=== PATIENT | female | born 1995 | race American Indian/Alaskan Native ===

== ENCOUNTER 2020-08-01 17:13 | Observation (INO) | payer OTHER ==
[2020-08-01] MEDS ORDERED: ACETAMINOPHEN 325 MG TAB ONE (17:20)
[2020-08-01] MEDS ORDERED: ACETAMINOPHEN 325 MG TAB PO ONE (17:25)
[2020-08-01] MEDS ORDERED: SODIUM CHLORIDE 0.9% 1000 ML IV SOLN IV ONE (17:26)
[2020-08-01] MEDS ORDERED: dexAMETHasone 4 MG/ML VIAL IV ONE (17:27)
[2020-08-01] MEDS ORDERED: AZITHROMYCIN 500 MG in SODIUM CHLORIDE 0.9% 250ML 250 ML IV ONE (17:27)
[2020-08-01] MEDS ORDERED: cefTRIAXone/NS 2 GM/100 ML 2 GM/100 ML BAG IV ONE (17:27)
--- NOTE | 2020-08-01 17:29 | Event Note ---
ED Screening Note ED Screening Note: Symptoms began on 07/21/2020 but have been worsening She has associated cough, shortness of breath, chest pain after frequent coughing, nausea No vomiting, no diarrhea, no abdominal pain She flew in from [place] No known sick contacts No past medical history No allergies to medications Last menstrual cycle 2 months ago, irregular cycles febrile, hypoxia, tachycardia This initial assessment/diagnostic orders/clinical plan/treatment(s) is/are subject to change based on patients health status, clinical progression and re- assessment by fellow clinical providers in the ED. Further treatment and workup at subsequent clinical providers discretion. Patient/guardian urged not to elope from the ED as their condition may be serious if not clinically assessed and managed. Initial orders include: sepsis/covid protocol pt placed on oxygen via nasal cannula charge nurse karlene made aware pt needs room CLARA
--- NOTE | 2020-08-01 18:11 | XRay Report ---
CHEST PA AND LATERAL VIEWS INDICATION: SOB, fever, hypoxia. COMPARISON: None FINDINGS: Support devices: None Heart: Normal Lungs/Pleura: No acute pulmonary or pleural findings. IMPRESSION: 1. No active disease. Signer Name: Wally Unger MD Signed: 08/01/2020 6:07 PM Workstation Name: [id number]
[2020-08-01 18:40] LABS: Basophils % (Auto) 0.2 % (0.0-1.8); Hematocrit 40.5 % (30.3-42.9); Hemoglobin 13.8 gm/dl (10.1-14.3); Lymphocytes % (Auto) 31.8 % (13.4-35.0); Mean Corpuscular HGB Conc 34 % (30-34); Mean Corpuscular Volume 86 fl (79-97); Monocytes # (Auto) 0.2 K/mm3 (0.0-0.8); Monocytes % (Auto) 6.3 % (0.0-7.3); Platelet Count 160 K/mm3 (140-440); Red Blood Count 4.72 M/mm3 (3.65-5.03); Red Cell Distribution Width 14.5 % (13.2-15.2)
[2020-08-01 18:52] LABS: Alanine Aminotransferase 41 units/L (7-56); Albumin 3.9 g/dL (3.9-5); Blood Urea Nitrogen 8 mg/dL (7-17); Calcium 8.8 mg/dL (8.4-10.2); Hemolysis Index 3
[2020-08-01 18:53] LABS: BUN/Creatinine Ratio 13
--- NOTE | 2020-08-01 22:45 | Emergency Department Report ---
ED Shortness of Breath HPI - General Chief Complaint: Dyspnea/Respdistress Stated Complaint: CHEST PAIN, SOB, HEADACHE Time Seen by Provider: 08/01/20 17:26 Source: patient Mode of arrival: Ambulatory Limitations: No Limitations - History of Present Illness Initial Comments: 24-year-old female, no past medical history, presents to ED with URI symptoms. Patient states for the last 10 days she has been having fever, cough, shortness of breath, body aches, loss of smell and taste, chest pain, headache. Patient states she has not been tested for COVID-19 because the test costs too much. Patient states she recently moved here from [place] earlier in the month. She does not have a PCP here in [place]. MD Complaint: shortness of breath -: days(s) (10) Severity: moderate Consistency: intermittent Improves With: rest Worsens With: exertion Associated Symptoms: chest pain, fever, cough Treatments Prior to Arrival: none - Related Data Home Oxygen Therapy: No Allergies Allergy/AdvReac Type Severity Reaction Status Date / Time No Known Allergies Allergy Unverified 08/01/20 17:16 ED Review of Systems ROS: Stated complaint: CHEST PAIN, SOB, HEADACHE Other details as noted in HPI Comment: All other systems reviewed and negative Constitutional: fever ENT: other (Reports loss of smell and taste) Respiratory: cough, SOB with exertion Cardiovascular: chest pain Gastrointestinal: denies: vomiting, diarrhea Musculoskeletal: myalgia Neurological: headache ED Past Medical Hx - Past Medical History Previous Medical History?: No - Surgical History Past Surgical History?: Yes Additional Surgical History: C SECTION X 3 - Social History Smoking Status: Never Smoker ED Physical Exam - General Limitations: No Limitations General appearance: alert, in no apparent distress, obese - Head Head exam: Present: atraumatic, normocephalic - Eye Eye exam: Present: normal appearance, EOMI - ENT ENT exam: Present: mucous membranes moist - Neck Neck exam: Present: normal inspection - Respiratory Respiratory exam: Present: normal lung sounds bilaterally. Absent: respiratory distress - Cardiovascular Cardiovascular Exam: Present: regular rate, normal rhythm - GI/Abdominal GI/Abdominal exam: Present: soft. Absent: distended, tenderness - Extremities Exam Extremities exam: Present: normal inspection - Neurological Exam Neurological exam: Present: alert, oriented X3 - Psychiatric Psychiatric exam: Present: normal affect, normal mood - Skin Skin exam: Present: warm, dry, intact, normal color ED Course Vital Signs 08/01/20 08/01/20 08/01/20 17:20 21:41 21:44 Temperature 102.9 F H Pulse Rate 112 H 86 Respiratory 20 18 26 H Rate Blood Pressure 145/87 O2 Sat by Pulse 93 96 Oximetry 08/01/20 08/01/20 08/01/20 21:45 22:00 22:15 Temperature Pulse Rate 85 86 83 Respiratory 26 H 17 20 Rate Blood Pressure 104/73 111/78 O2 Sat by Pulse 95 95 97 Oximetry 08/01/20 08/01/20 08/01/20 22:30 22:45 22:46 Temperature Pulse Rate Respiratory Rate Blood Pressure 114/70 114/70 110/63 O2 Sat by Pulse 94 97 Oximetry 08/01/20 08/01/20 08/01/20 23:15 23:31 23:45 Temperature Pulse Rate Respiratory Rate Blood Pressure 111/78 111/78 111/78 O2 Sat by Pulse 98 97 Oximetry 08/02/20 08/02/20 00:23 00:30 Temperature Pulse Rate Respiratory Rate Blood Pressure 112/68 129/79 O2 Sat by Pulse 98 95 Oximetry - Reevaluation(s) Reevaluation #1: 08/02/20 00:33 O2 sats dropped to 90% on room air with ambulation. ED Medical Decision Making - Lab Data Result diagrams: 08/01/20 17:56 08/01/20 17:56 - EKG Data -: EKG Interpreted by [facility] EKG shows normal: sinus rhythm, axis, intervals, QRS complexes, ST-T waves Rate: tachycardia (rate 106) - EKG Data Interpretation: no acute changes - Radiology Data Radiology results: report reviewed, image reviewed - Medical Decision Making 24-year-old female presents to ED with URI symptoms suspicious for COVID-19, including loss of smell or taste and difficulty breathing. O2 sats 90% on room air. CTA chest shows evidence of pneumonia. Blood cultures drawn, patient given Rocephin and azithromycin. Patient also given Decadron due to her hypoxia. Patient will be admitted to hospitalist, Dr Bowen, for further man agement. - Differential Diagnosis COVID-19, pneumonia, PE Critical Care Time: Yes Critical care time in (mins) excluding proc time.: 35 Critical care attestation.: If time is entered above; I have spent that time in minutes in the direct care of this critically ill patient, excluding procedure time. Critical Care Time: 35 min ED Disposition Clinical Impression: Pneumonia, Suspected 2019 novel coronavirus infection, Hypoxia Disposition: OP ADMIT IP TO THIS HOSP Is pt being admited?: Yes Condition: Stable Time of Disposition: 00:31
[2020-08-01 23:25] LABS: Bilirubin,Urine NEG (Negative); Blood,Urine NEG (Negative); Color,Urine Amber (Yellow); Mucus,Urine 3+ /HPF; RBC,Urine < 1.0 /HPF (0.0-6.0)
--- NOTE | 2020-08-02 00:29 | Cat Scan Report ---
CTA chest with contrast INDICATION : P.E. PROTOCOL!!! Pt complains of chest pain with S.O.B. and fever. TECHNIQUE: Axial imaging performed through the chest, with contrast bolus timing set to maximize opa cification of the pulmonary arteries. 3-plane MIP reformatted images were obtained. All CT scans at this location are performed using CT dose reduction for ALARA by means of automated exposure control. 100 mL of intravenous contrast administered. COMPARISON: None FINDINGS: Bolus: Contrast bolus timing is adequate. PTE: No filling defect is present to suggest PTE. Mediastinum: Heart and great vessels appear normal. No pathologic mediastinal adenopathy. Lungs: There are patchy multifocal groundglass opacities throughout the lungs with no dense consolid ation or effusion. Upper abdomen: Limited imaging of the upper abdomen shows nothing acute. Bones: Degenerative changes in the spine with nothing acute. IMPRESSION: 1. Negative for PTE. 2. Pulmonary findings as outlined above most likely reflect changes from an atypical infectious etiol ogy such as viral pneumonia. Recommend appropriate testing. Signer Name: Harry Burdick MD Signed: 08/02/2020 12:25 AM Workstation Name: [id number]
[2020-08-02] MEDS ORDERED: MAGNESIUM HYDROXIDE (MOM) ORAL LIQD UDC PO PRN (00:57)
[2020-08-02] MEDS ORDERED: ONDANSETRON 4 MG/2 ML INJ IV PRN (00:57)
[2020-08-02] MEDS ORDERED: MORPHINE 2 MG/1 ML INJ IV PRN (00:57)
--- NOTE | 2020-08-02 01:06 | History and Physical Report ---
History of Present Illness Date of examination: 08/02/20 Date of admission: 08/02/2020 Chief complaint: Shortness of breath Cough History of present illness: 24-year-old female with no significant past medical history presenting to the emergency room today complaining of cough and shortness of breath. She has had some mild chest discomfort related to a cough. She has also been having some generalized body aches and pain. 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 She denies any sick contacts and denies contact with anyone with COVID-19. Upon arrival in the emergency room today she was slightly tachycardic and hypoxic. She had a fever with a temperature 102.[address] angiogram today was compatible with viral pneumonia. Patient is being admitted for pneumonia with possible Covid. Past History Past Medical History: No medical history Past Surgical History: Social history: no significant social history Family history: no significant family history Medications and Allergies Allergies Allergy/AdvReac Type Severity Reaction Status Date / Time No Known Allergies Allergy Unverified 08/01/20 17:16 Home Medications Medication Instructions Recorded Confirmed Last Taken Type No Known Home Medications [No 08/02/20 08/02/20 Unknown History Reported Home Medications] Review of Systems Constitutional: fever, chills Ears, nose, mouth and throat: no nasal congestion, no sore throat Cardiovascular: no chest pain, no palpitations Respiratory: cough, shortness of breath, no wheezing Gastrointestinal: no abdominal pain, no nausea, no vomiting, no diarrhea, no heartburn Genitourinary Female: no flank pain, no dysuria, no hematuria Musculoskeletal: no neck pain, no low back pain Integumentary: no rash, no pruritis Neurological: no headaches, no confusion Psychiatric: no anxiety, no depression Exam - Constitutional Vitals: Temp Pulse Resp BP Pulse Ox 102.9 F H 83 20 129/79 95 08/01/20 17:20 08/01/20 22:15 08/01/20 22:15 08/02/20 00:30 08/02/20 00:30 General appearance: Present: no acute distress, well-nourished, obese - EENT Eyes: Present: PERRL, EOM intact. Absent: scleral icterus ENT: hearing intact, clear oral mucosa, dentition normal - Neck Neck: Present: supple, normal ROM - Respiratory Respiratory effort: normal Respiratory: bilateral: rales (Few rales in bases) - Cardiovascular Rhythm: regular Heart Sounds: Present: S1 & S2. Absent: gallop, systolic murmur, diastolic murmur, rub - Extremities Extremities: no ischemia, pulses intact, pulses symmetrical, No edema, normal temperature, normal color, Full ROM Peripheral Pulses: within normal limits - Abdominal General gastrointestinal: Present: soft, non-tender, non-distended, normal bowel sounds. Absent: mass - Integumentary Integumentary: Present: clear, warm, dry. Absent: rash - Musculoskeletal Musculoskeletal: strength equal bilaterally - Psychiatric Psychiatric: appropriate mood/affect, intact judgment & insight, memory intact, cooperative - Neurologic Neurologic: CNII-XII intact, no focal deficits, moves all extremities Results - Labs CBC & Chem 7: 08/01/20 17:56 08/01/20 17:56 Labs: Abnormal lab results 08/01/20 08/01/20 08/01/20 Range/Units 17:56 17:56 17:56 WBC 3.2 L (4.5-11.0) K/mm3 Lymph # (Auto) 1.0 L (1.2-5.4) K/mm3 D-Dimer 275.4 H (0-234) ng/mlDDU Sodium 135 L (137-145) mmol/L Glucose 121 H (65-100) mg/dL AST 41 H (5-40) units/L Lactate Dehydrogenase 292 H (91-180) units/L C-Reactive Protein 5.20 H (0.00-1.30) mg/dL Total Protein 8.4 H (6.3-8.2) g/dL Ur Specific [place] (1.003-1.030) 08/01/20 Range/Units 22:31 WBC (4.5-11.0) K/mm3 Lymph # (Auto) (1.2-5.4) K/mm3 D-Dimer (0-234) ng/mlDDU Sodium (137-145) mmol/L Glucose (65-100) mg/dL AST (5-40) units/L Lactate Dehydrogenase (91-180) units/L C-Reactive Protein (0.00-1.30) mg/dL Total Protein (6.3-8.2) g/dL Ur Specific [place] 1.031 H (1.003-1.030) Assessment and Plan - Patient Problems (1) Pneumonia Current Visit: Yes Status: Acute Plan to address problem: Patient placed on empiric IV antibiotics and steroids. We also placed on isolation precautions to rule out COVID-19. Consult placed to infectious disease for evaluation. Will await COVID-19 testing. (2) Hypoxia Current Visit: Yes Status: Acute Plan to address problem: Possibly secondary to the underlying pneumonia. We will place patient on oxygen and keep O2 saturation greater or equal to 94%. (3) Suspected 2019 novel coronavirus infection Current Visit: Yes Status: Acute Plan to address problem: We will await COVID-19 testing. Infectious disease has been consulted for evaluation. (4) DVT prophylaxis Current Visit: Yes Status: Acute Plan to address problem: Patient is placed on subcutaneous Lovenox. (5) Full code status Current Visit: Yes Status: Acute Plan to address problem: Patient is a full code.
[2020-08-02] MEDS: ACETAMINOPHEN 325 MG TAB PO PRN ×2 (03:56→22:02)
[2020-08-02] MEDS ORDERED: dexAMETHasone 4 MG/ML VIAL IV SCH (10:00)
[2020-08-02] MEDS ORDERED: AZITHROMYCIN 500 MG in SODIUM CHLORIDE 0.9% 250ML 250 ML IV SCH (10:00)
[2020-08-02] MEDS: cefTRIAXone/NS 2 GM/100 ML 2 GM/100 ML BAG IV SCH (10:21)
--- NOTE | 2020-08-02 13:33 | Consultation ---
History of Present Illness - Reason for Consult Consult date: 08/02/20 COVID PUI Requesting physician: LUC SCHWARTZ - History of Present Illness The patient is a 24-year-old female with no significant past medical history admitted to the hospital with cough, shortness of breath and fever. She has been symptomatic for 10 days prior to admission. CXR without pneumonia but CT angiogram showed viral pneumonia concerning for COVID-19. Initial evaluation re vealed oxygen saturations of 97% on room air. Review of Systems: reviewed in the chart, unable to obtain, minimize risk of transmission Past History Past Medical History: No medical history Past Surgical History: Social history: no significant social history Family history: no significant family history Medications and Allergies Allergies Allergy/AdvReac Type Severity Reaction Status Date / Time No Known Allergies Allergy Unverified 08/01/20 17:16 Home Medications Medication Instructions Recorded Confirmed Last Taken Type No Known Home Medications [No 08/02/20 08/02/20 Unknown History Reported Home Medications] Active Meds: Active Medications Acetaminophen (Acetaminophen 325 Mg Tab) 650 mg PO Q4H PRN PRN Reason: Pain MILD(1-3)/Fever >100.5/MAC Last Admin: 08/02/20 03:56 Dose: 650 mg Documented by: Azithromycin (Azithromycin 250 Mg Tab) 500 mg PO QDAY [facility] Stop: 08/05/20 10:01 Dexamethasone (Dexamethasone 4 Mg Tab) 6 mg PO DAILY [facility] Stop: 08/10/20 12:00 Ceftriaxone Sodium (Rocephin/Ns 2 Gm/100 Ml) 2 gm in 100 mls @ 200 mls/hr IV Q24HR ILIR; Protocol Last Admin: 08/02/20 10:21 Dose: 200 mls/hr Documented by: Magnesium Hydroxide (Magnesium Hydroxide (Mom) Oral Liqd Udc) 30 ml PO Q4H PRN PRN Reason: Constipation Morphine Sulfate (Morphine 2 Mg/1 Ml Inj) 2 mg IV Q4H PRN PRN Reason: Pain, Moderate (4-6) Ondansetron HCl (Ondansetron 4 Mg/2 Ml Inj) 4 mg IV Q8H PRN PRN Reason: Nausea And Vomiting Last Admin: 08/02/20 01:41 Dose: 4 mg Documented by: Sodium Chloride (Sodium Chloride 0.9% 10 Ml Flush Syringe) 10 ml IV BID ILIR Last Admin: 08/02/20 10:22 Dose: 10 ml Documented by: Sodium Chloride (Sodium Chloride 0.9% 10 Ml Flush Syringe) 10 ml IV PRN PRN PRN Reason: LINE FLUSH Physical Examination - Physical Exam Narrative exam: Physical Exam (reviewed in chart to minimize risk of transmission) Constitutional: deferred Head, Ears, Nose: deferred Eyes: deferred Neck: deferred Oral: deferred Cardiovascular: deferred Respiratory: deferred GI: deferred Musculoskeletal: deferred Skin: deferred Hem/Lymphatic: deferred Psych: deferred Neurological: deferred - Constitutional Vitals: Vital Signs Temp Pulse Resp BP Pulse Ox 97.9 F 70 18 88/50 95 08/02/20 06:04 08/02/20 06:04 08/02/20 06:04 08/02/20 06:04 08/02/20 09:25 Temperature -Last 24 Hours Temperature 97.9 F Temperature 99.1 F Temperature 102.9 F Results - Labs CBC & Chem 7: 08/01/20 17:56 08/01/20 17:56 Labs: Abnormal lab results 08/01/20 08/01/20 08/01/20 Range/Units 17:56 17:56 17:56 WBC 3.2 L (4.5-11.0) K/mm3 Lymph # (Auto) 1.0 L (1.2-5.4) K/mm3 D-Dimer 275.4 H (0-234) ng/mlDDU Sodium 135 L (137-145) mmol/L Glucose 121 H (65-100) mg/dL AST 41 H (5-40) units/L Lactate Dehydrogenase 292 H (91-180) units/L C-Reactive Protein 5.20 H (0.00-1.30) mg/dL Total Protein 8.4 H (6.3-8.2) g/dL Ur Specific [place] (1.003-1.030) 08/01/20 Range/Units 22:31 WBC (4.5-11.0) K/mm3 Lymph # (Auto) (1.2-5.4) K/mm3 D-Dimer (0-234) ng/mlDDU Sodium (137-145) mmol/L Glucose (65-100) mg/dL AST (5-40) units/L Lactate Dehydrogenase (91-180) units/L C-Reactive Protein (0.00-1.30) mg/dL Total Protein (6.3-8.2) g/dL Ur Specific [place] 1.031 H (1.003-1.030) - Imaging and Cardiology Chest x-ray: report reviewed, image reviewed Assessment and Plan Cultures: SARS CoV2 PCR: Pending Blood culture: In process A/P: 24-year-old female with no significant past medical history admitted to the hospital with cough, shortness of breath and fever. She has been symptomatic for 10 days prior to admission: #Bilateral pneumonia: Likely secondary to COVID-19, not seen on CXR, only seen on CT chest. Inflammatory markers not too impressive. #Leukopenia: Probably secondary to COVID-19 Recs: Minimal to no hypoxia, patient with low risk, hold off on remdesivir Okay to continue steroids f/u COVID-19 PCR results Procalcitonin is low, antibiotics discontinued Dominick Kohler MD, FACP [facility] O: [phone] F: [phone]
--- NOTE | 2020-08-02 14:45 | Event Note ---
Date: 08/02/20 Patient seen and evaluated Patient admitted for possible Covid pneumonia Covid work-up and observation for 1 day. Patient has temperature of 102 iron 2.9 ID consult appreciated
[2020-08-02] MEDS: guaiFENesin DM 200/20 MG ORAL LIQD 10 ML PO PRN ×2 (16:10→22:02)
[2020-08-03 05:11] LABS: Basophils % (Auto) 0.3 % (0.0-1.8); Hematocrit 40.4 % (30.3-42.9); Hemoglobin 13.9 gm/dl (10.1-14.3); Lymphocytes # (Auto) 0.6 K/mm3 (1.2-5.4); Lymphocytes % (Auto) 9.5 % (13.4-35.0); Mean Corpuscular HGB Conc 34 % (30-34); Mean Corpuscular Volume 86 fl (79-97); Monocytes # (Auto) 0.3 K/mm3 (0.0-0.8); Monocytes % (Auto) 5.2 % (0.0-7.3); Platelet Count 172 K/mm3 (140-440); Red Blood Count 4.73 M/mm3 (3.65-5.03); Red Cell Distribution Width 14.4 % (13.2-15.2)
[2020-08-03 05:19] LABS: BUN/Creatinine Ratio 20; Blood Urea Nitrogen 10 mg/dL (7-17); Calcium 8.8 mg/dL (8.4-10.2); Hemolysis Index 97
[2020-08-03 05:23] LABS: INR 1.02 (0.87-1.13)
[2020-08-03] MEDS: ACETAMINOPHEN 325 MG TAB PO PRN (06:21)
[2020-08-03] MEDS: guaiFENesin DM 200/20 MG ORAL LIQD 10 ML PO PRN ×2 (06:22→22:37)
[2020-08-03] MEDS: cefTRIAXone/NS 2 GM/100 ML 2 GM/100 ML BAG IV SCH (09:29)
[2020-08-03] MEDS: DEXAMETHASONE 4 MG TAB PO SCH (09:30)
[2020-08-03] MEDS ORDERED: AZITHROMYCIN 250 MG TAB PO SCH (10:00)
[2020-08-03] MEDS: oxyCODONE /ACETAMINOPHEN 5-325MG TAB PO PRN ×2 (13:40→22:36)
--- NOTE | 2020-08-03 16:10 | Progress Note ---
Assessment and Plan - Patient Problems (1) Pneumonia due to COVID-19 virus Current Visit: Yes Status: Acute Plan to address problem: 08/01 CXR shows no active disease 08/01 CTA chest is negative for PTE, patchy multifocal groundglass opacities throughout the lungs with no gas consolidation or effusion 08/02 COVID-19 PCR positive Infectious disease consulted, appreciate recommendations Supplemental oxygen as needed Anticoagulation per protocol Trend inflammatory markers from a stratification OOB 3 times daily Pulmonary hygiene SPO2 monitoring Decadron p.o. 6 mg for 10 days Prone to sleep as tolerated (2) Acute respiratory failure with hypoxia Current Visit: Yes Status: Acute Plan to address problem: Patient had hypoxia in the emergency department upon initial arrival Patient is on room air now SPO2 monitoring Supplemental oxygen as needed Pulmonary hygiene (3) DVT prophylaxis Current Visit: Yes Status: Acute Plan to address problem: Lovenox subcu SCDs to bilateral lower extremities while in bed History Interval history: This is a 24-year-old female with no significant medical presented to the emergency department on 08/01 complaining of cough, shortness of breath, mild chest discomfort, generalized weakness, generalized body aches and pain with a loss of sense of taste or smell. Upon arrival to the emergency department patient was tachycardic and hypoxic and febrile and her CT angiogram was compatible with viral pneumonia. Infectious disease was consulted and a COVID- 19 PCR was positive. On examination patient complains of severe headache which she states that she has been having since the beginning of the symptoms and described as a pressure top of her head. Patient remains on room air. RN instructed to provide her with an incentive spirometer. 08/02: Infectious disease evaluation completed and antibiotics discontinued given normal CRP, COVID-19 PCR positive Hospitalist Physical - Constitutional Vitals: Temp Pulse Resp BP Pulse Ox 98.1 F 68 18 92/51 92 08/03/20 11:29 08/03/20 11:29 08/03/20 11:29 08/03/20 11:29 08/03/20 11:29 General appearance: Present: no acute distress, well-nourished, obese - EENT Eyes: Present: EOM intact ENT: hearing intact, clear oral mucosa - Neck Neck: Present: supple, normal ROM - Respiratory Respiratory effort: normal Respiratory: bilateral: diminished - Cardiovascular Rhythm: regular Heart Sounds: Present: S1 & S2. Absent: systolic murmur, diastolic murmur - Extremities Extremities: no ischemia, pulses intact, pulses symmetrical, No edema, normal temperature, normal color, Full ROM Peripheral Pulses: within normal limits - Abdominal General gastrointestinal: soft, non-tender, normal bowel sounds - Integumentary Integumentary: Present: warm, dry - Psychiatric Psychiatric: appropriate mood/affect, cooperative - Neurologic Neurologic: CNII-XII intact, no focal deficits, moves all extremities - Allied Health Allied health notes reviewed: nursing Results - Labs CBC & Chem 7: 08/03/20 03:45 08/03/20 03:45 Labs: Laboratory Last Values WBC 6.7 K/mm3 (4.5-11.0) 08/03/20 03:45 RBC 4.73 M/mm3 (3.65-5.03) 08/03/20 03:45 Hgb 13.9 gm/dl (10.1-14.3) 08/03/20 03:45 Hct 40.4 % (30.3-42.9) 08/03/20 03:45 MCV 86 fl (79-97) 08/03/20 03:45 MCH 29 pg (28-32) 08/03/20 03:45 MCHC 34 % (30-34) 08/03/20 03:45 RDW 14.4 % (13.2-15.2) 08/03/20 03:45 Plt Count 172 K/mm3 (140-440) 08/03/20 03:45 Lymph % (Auto) 9.5 % (13.4-35.0) L 08/03/20 03:45 Nobles % (Auto) 5.2 % (0.0-7.3) 08/03/20 03:45 Eos % (Auto) 0.0 % (0.0-4.3) 08/03/20 03:45 Baso % (Auto) 0.3 % (0.0-1.8) 08/03/20 03:45 Lymph # (Auto) 0.6 K/mm3 (1.2-5.4) L 08/03/20 03:45 Nobles # (Auto) 0.3 K/mm3 (0.0-0.8) 08/03/20 03:45 Eos # (Auto) 0.0 K/mm3 (0.0-0.4) 08/03/20 03:45 Baso # (Auto) 0.0 K/mm3 (0.0-0.1) 08/03/20 03:45 Seg Neutrophils % 85.0 % (40.0-70.0) H 08/03/20 03:45 Seg Neutrophils # 5.7 K/mm3 (1.8-7.7) 08/03/20 03:45 PT 13.3 Sec. (12.2-14.9) 08/03/20 03:45 INR 1.02 (0.87-1.13) 08/03/20 03:45 D-Dimer 275.4 ng/mlDDU (0-234) H 08/01/20 17:56 Sodium 138 mmol/L (137-145) 08/03/20 03:45 Potassium 4.6 mmol/L (3.6-5.0) 08/03/20 03:45 Chloride 103.8 mmol/L (98-107) 08/03/20 03:45 Carbon Dioxide 21 mmol/L (22-30) L 08/03/20 03:45 Anion Gap 18 mmol/L 08/03/20 03:45 BUN 10 mg/dL (7-17) 08/03/20 03:45 Creatinine 0.5 mg/dL (0.6-1.2) L 08/03/20 03:45 Estimated GFR > 60 ml/min 08/03/20 03:45 BUN/Creatinine Ratio 20 % 08/03/20 03:45 Glucose 278 mg/dL (65-100) H 08/03/20 03:45 Lactic Acid 1.00 mmol/L (0.7-2.0) 08/02/20 05:48 Calcium 8.8 mg/dL (8.4-10.2) 08/03/20 03:45 Ferritin 189.3 ng/mL (10.0-200.0) 08/01/20 17:56 Total Bilirubin 0.40 mg/dL (0.1-1.2) 08/01/20 17:56 AST 41 units/L (5-40) H 08/01/20 17:56 ALT 41 units/L (7-56) 08/01/20 17:56 Alkaline Phosphatase 76 units/L (35-129) 08/01/20 17:56 Lactate Dehydrogenase 292 units/L (91-180) H 08/01/20 17:56 C-Reactive Protein 5.20 mg/dL (0.00-1.30) H 08/01/20 17:56 Total Protein 8.4 g/dL (6.3-8.2) H 08/01/20 17:56 Albumin 3.9 g/dL (3.9-5) 08/01/20 17:56 Albumin/Globulin Ratio 0.9 % 08/01/20 17:56 Procalcitonin < 0.05 ng/mL (<0.15) 08/01/20 17:56 HCG, Qual Negative (Negative) 08/01/20 18:24 Urine Color Nicole (Yellow) 08/01/20 22:31 Urine Turbidity Clear (Clear) 08/01/20 22:31 Urine pH 6.0 (5.0-7.0) 08/01/20 22:31 Ur Specific [place] 1.031 (1.003-1.030) H 08/01/20 22:31 Urine Protein 30 mg/dl mg/dL (Negative) 08/01/20 22:31 Urine Glucose (UA) Neg mg/dL (Negative) 08/01/20 22:31 Urine Ketones Neg mg/dL (Negative) 08/01/20 22:31 Urine Blood Neg (Negative) 08/01/20 22:31 Urine Nitrite Neg (Negative) 08/01/20 22:31 Urine Bilirubin Neg (Negative) 08/01/20 22:31 Urine Urobilinogen 2.0 mg/dL (<2.0) 08/01/20 22:31 Ur Leukocyte Esterase Neg (Negative) 08/01/20 22:31 Urine WBC (Auto) 3.0 /HPF (0.0-6.0) 08/01/20 22:31 Urine RBC (Auto) < 1.0 /HPF (0.0-6.0) 08/01/20 22:31 U Epithel Cells (Auto) 4.0 /HPF (0-13.0) 08/01/20 22:31 Urine Mucus 3+ /HPF 08/01/20 22:31 Coronavirus (PCR) Positive (Negative) A 08/02/20 10:00 Microbiology: Microbiology 08/01/20 17:56 Peripheral/Venous Blood Culture - Preliminary NO GROWTH AFTER 24 HOURS 08/01/20 17:56 Peripheral/Venous Blood Culture - Preliminary NO GROWTH AFTER 24 HOURS Prieto/IV: Voiding Method Toilet IV Catheter Type [Left Forearm INT / Saline Lock ] IV Catheter Type [Right Peripheral IV Forearm] IV Catheter Type [Right INT / Saline Lock Antecubital] Active Medications - Current Medications Current Medications: Generic Name Dose Route Start Last Admin Trade Name Freq PRN Reason Stop Dose Admin Acetaminophen 650 mg 08/02/20 00:57 08/03/20 06:21 Acetaminophen 325 Mg Tab PO 650 mg Q4H PRN Administration Pain MILD(1-3)/Fever >100.5/MAC Dexamethasone 6 mg 08/03/20 10:00 08/03/20 09:30 Dexamethasone 4 Mg Tab PO 08/10/20 12:00 6 mg DAILY ILIR Administration Guaifenesin 10 ml 08/02/20 15:51 08/03/20 06:22 Guaifenesin Dm 200/20 Mg Oral Liqd 10 Ml PO 10 ml Q4H PRN Administration Cough Magnesium Hydroxide 30 ml 08/02/20 00:57 Magnesium Hydroxide (Mom) Oral Liqd Udc PO Q4H PRN Constipation Morphine Sulfate 2 mg 08/02/20 00:57 Morphine 2 Mg/1 Ml Inj IV Q4H PRN Pain, Moderate (4-6) Ondansetron HCl 4 mg 08/02/20 00:57 08/02/20 01:41 Ondansetron 4 Mg/2 Ml Inj IV 4 mg Q8H PRN Administration Nausea And Vomiting Oxycodone/Acetaminophen 1 tab 08/03/20 13:21 08/03/20 13:40 Oxycodone /Acetaminophen 5-325mg Tab PO 1 tab Q6H PRN Administration Pain, Moderate (4-6) Sodium Chloride 10 ml 08/02/20 10:00 08/03/20 09:31 Sodium Chloride 0.9% 10 Ml Flush Syringe IV 10 ml BID ILIR Administration Sodium Chloride 10 ml 08/02/20 00:57 Sodium Chloride 0.9% 10 Ml Flush Syringe IV PRN PRN LINE FLUSH
--- NOTE | 2020-08-04 09:35 | Discharge Summary ---
Providers - Providers Date of Admission: 08/02/20 00:34 Date of discharge: 08/04/20 Attending physician: DORIS SUMMERS 08/02/20 00:57 Consult to Physician [CONS] Routine Comment: Consulting Provider: AUGUSTUS MOLINA Physician Instructions: Reason For Exam: Pneumonia R/O Covid 19 Primary care physician: [employer] Hospitalization Reason for admission: sob/covid Condition: Stable Hospital course: The patient is a 24-year-old female with no significant past medical history admitted to the hospital with cough, shortness of breath and fever. She has been symptomatic for 10 days prior to admission. CXR without pneumonia but CT angiogram showed viral pneumonia concerning for COVID-19. The patient was admitted with diagnosis of sepsis present on admission, Covid bilateral pneumonia and leukopenia. Initial evaluation revealed oxygen saturations of 97% on room air. ID saw the patient in consultation and recommended no remdesivir given no hypoxia. Patient was started on steroids and procalcitonin was noted to be low so antibiotics were discontinued. Patient had exercise pulse oximetry completed Which revealed room air saturation of 95% and after walking 94% on room air. Therefore, patient is felt to have received maximal hospital benefit for discharge and will follow up with ID as an outpatient. Discharge medication of Decadron. Dedicated discharge time 35 minutes. Disposition: - TO HOME OR SELFCARE Time spent for discharge: 35 - Discharge Diagnoses (1) Sepsis Status: Acute (2) Leukopenia Status: Acute (3) Acute respiratory failure with hypoxia Status: Acute (4) Pneumonia due to COVID-19 virus Status: Acute Core Measure Documentation - Palliative Care Palliative Care/ Comfort Measures: Not Applicable - Core Measures Any of the following diagnoses?: none Exam - Constitutional Vitals: Temp Pulse Resp BP Pulse Ox 97.7 F 52 L 18 95/53 94 08/04/20 06:39 08/04/20 06:39 08/04/20 06:39 08/04/20 06:39 08/04/20 08:29 General appearance: Present: no acute distress, well-nourished - EENT Eyes: Present: PERRL ENT: hearing intact, clear oral mucosa - Neck Neck: Present: supple, normal ROM - Respiratory Respiratory effort: normal Respiratory: bilateral: CTA - Cardiovascular Heart Sounds: Present: S1 & S2. Absent: rub, click - Extremities Extremities: pulses symmetrical, No edema Peripheral Pulses: within normal limits - Abdominal General gastrointestinal: Present: soft, non-tender, non-distended, normal bowel sounds Female genitourinary: Present: normal - Integumentary Integumentary: Present: clear, warm, dry - Musculoskeletal Musculoskeletal: gait normal, strength equal bilaterally - Psychiatric Psychiatric: appropriate mood/affect, intact judgment & insight - Neurologic Neurologic: CNII-XII intact, moves all extremities Plan Activity: advance as tolerated Weight Bearing Status: Weight Bear as Tolerated Diet: regular Follow up with: PRIMARY CARE, [Primary Care Provider] - 3-5 Days AUGUSTUS MOLINA MD [Staff Physician] - 7 Days Prescriptions: dexAMETHasone [Decadron] 6 mg PO DAILY #10 tablet
[2020-08-04] MEDS: DEXAMETHASONE 4 MG TAB PO SCH (10:04)
[2020-08-04 13:12] VITALS: BP 106/59
== END 2020-08-04 13:12 | disposition home or self-care (01) ==
LOC: ED 17:13 → 3A 08-02 00:34
PROVIDERS: ADMIT Internal Medicine Geriatric Medicine; ATTEND Hospitalist
DX: U07.1 COVID-19 (principal); R65.21 Severe sepsis with septic shock; J96.01 Acute respiratory failure with hypoxia; J12.89 Other viral pneumonia; D72.819 Decreased white blood cell count, unspecified; Z98.891 History of uterine scar from previous surgery
CPT/HCPCS: 36415; 71046; 71275; 80048; 80053; 81001; 82140; 82728; 83615; 84145; 84703; 85025; 85379; 85610; 86140; 87040; 93005; 94760; 96365; 96366; 96367; 96368; 96375; 96376; 99291; G0378; J0456; J0696; J1100; J2405; J7050; J8540; Q9967; U0003